=== PATIENT | male | born 1950 | race Caucasian/White ===

== ENCOUNTER 2018-01-17 16:02 | Emergency (ER) | payer OTHER | END 2018-01-17 19:33 | disposition home or self-care (01) | LOC: FTE 16:02 | DX: H33.22 Serous retinal detachment, left eye (principal); I10 Essential (primary) hypertension; E03.9 Hypothyroidism, unspecified; Z85.038 Personal history of other malignant neoplasm of large intestine | CPT/HCPCS: 76536; 99284-25 ==

== ENCOUNTER 2018-09-14 09:58 | Day surgery (SDC) | payer OTHER ==
[~2018-09-14 09:58] MED LIST: ACETAZOLAMIDE 250 MG TAB PO; LIDOCAINE 4% (MPF) 5 ML INJ OPER
[2018-09-14] MEDS: MOXIFLOXACIN 0.5% 3 ML OPH OPER (10:43)
[2018-09-14] MEDS: TROPICAMIDE 1% 15 ML OPH OPER (10:43)
[2018-09-14] MEDS: PHENYLephrine 10% 5 ML OPH OPER (10:44)
[2018-09-14] MEDS: DICLOFENAC 0.1% 2.5 ML OPH OPER (10:44)
[2018-09-14] MEDS ORDERED: LACTATED RINGER'S 1,000 ML IV (11:00)
[2018-09-14] MEDS ORDERED: CARBACHOL 0.01% 1.5 ML OPH INJ (12:55)
[2018-09-14] MEDS ORDERED: EPINEPHrine 1 MG INJ (12:56)
[2018-09-14] MEDS ORDERED: DEXAMETHASONE 4 MG/ML 1 ML INJ (12:56)
[2018-09-14] MEDS ORDERED: MIDAZOLAM 1 MG/ML 2 ML INJ ×2 (12:59→13:24)
[2018-09-14] MEDS ORDERED: FENTAnyl 50 MCG/ML VIAL (13:17)
[2018-09-14] MEDS ORDERED: OXYCODONE/ACETAMINOPHEN (5/325) TAB PO ×2 (13:30)
[2018-09-14] MEDS ORDERED: LABETALOL HCL 20MG INJ IV (13:30)
[2018-09-14] MEDS ORDERED: FENTAnyl 50 MCG/ML VIAL IV ×3 (13:30)
[2018-09-14] MEDS ORDERED: hydrALAzine 20 MG INJ IV (13:30)
[2018-09-14] MEDS ORDERED: ONDANSETRON 4 MG INJ IV (13:30)
[2018-09-14] MEDS: LIDOCAINE 1.5%/EPI MPF (SDV) 30 ML VIAL (13:41)
[2018-09-14] MEDS: TETRACAINE 0.5% 4 ML OPH (13:42)
[2018-09-14] MEDS: TOBRAMYCIN/DEXAMETH 3.5 GM OPH OINT (13:42)
[2018-09-14] MEDS ORDERED: SODIUM HYALURONATE 14 MG/ML SYG (13:57)
== END 2018-09-14 15:00 | disposition home or self-care (01) ==
LOC: SDS 09:58
DX: H25.12 Age-related nuclear cataract, left eye (principal); I10 Essential (primary) hypertension; E78.5 Hyperlipidemia, unspecified; E03.9 Hypothyroidism, unspecified
CPT/HCPCS: 66984

== ENCOUNTER 2018-12-29 19:11 | Emergency (ER) | payer OTHER ==
[2018-12-29 20:16] LABS: ADD MAN DIFF? NO
[2018-12-29 20:17] LABS: WHITE BLOOD COUNT 9.1 10^3/ul (4.8-10.8)
[2018-12-29 20:17] LABS: BASOPHILS % 0.3 % (0.0-2.0); EOSINOPHILS # 0.2 10^3/ul (0.0-0.5); EOSINOPHILS % 2.4 % (0.0-7.0); HEMATOCRIT 44.9 % (42.0-52.0); HEMOGLOBIN 15.2 g/dl (14.0-18.0); LYMPHOCYTES # 2.3 10^3/ul (0.8-2.9); LYMPHOCYTES % 25.3 % (15.0-51.0); MEAN CORPUSCULAR HEMOGLOBIN 31.9 pg (29.0-33.0); MEAN CORPUSCULAR HGB CONC 33.9 g/dl (32.0-37.0); MEAN CORPUSCULAR VOLUME 94.1 fl (82.0-101.0); MEAN PLATELET VOLUME 10.8 fl (7.4-10.4); MONOCYTE # 0.8 10^3/ul (0.3-0.9); MONOCYTES % 8.6 % (0.0-11.0); NEUTROPHIL # 5.7 10^3/ul (1.6-7.5); NEUTROPHILS % 63.2 % (39.0-77.0); PLATELET COUNT 152 10^3/UL (140-415); RED BLOOD COUNT 4.77 10^6/ul (4.70-6.10); RED CELL DISTRIBUTION WIDTH 12.4 % (11.5-14.5)
[2018-12-29 20:25] LABS: ADD UMIC YES; UR ASCORBIC ACID 40 mg/dL (NEGATIVE); UR BILIRUBIN (Dip) NEGATIVE (NEGATIVE); UR BLOOD (Dip) NEGATIVE (NEGATIVE); UR CLARITY SLIGHTLY CLOUDY (CLEAR); UR COLOR AMBER (YELLOW); UR GLUCOSE (Dip) NEGATIVE (NEGATIVE); UR KETONES (Dip) TRACE mg/dL (NEGATIVE); UR LEUKOCYTE ESTERASE (Dip) NEGATIVE Leu/ul (NEGATIVE); UR MUCUS MANY /HPF (NONE SEEN); UR NITRITE (Dip) NEGATIVE (NEGATIVE); UR RBC 1 /HPF (0-5); UR TOTAL PROTEIN (Dip) 2+ mg/dl (NEGATIVE); UR UROBILINOGEN (Dip) NEGATIVE (NEGATIVE); UR WBC 3 /HPF (0-5)
[2018-12-29] MEDS: SOD CHLORIDE 0.9% 1,000 ML IV (20:26)
[2018-12-29] MEDS: ONDANSETRON 4 MG INJ IV (20:26)
[2018-12-29] MEDS: morphine 4 MG/ML VIAL IV (20:26)
[2018-12-29 20:30] LABS: ALANINE AMINOTRANSFERASE 50 IU/L (13-69); ALBUMIN 4.7 g/dl (3.3-4.9); ALBUMIN/GLOBULIN RATIO 1.88; ALKALINE PHOSPHATASE 116 IU/L (42-121); ANION GAP 6 (5-13); ASPARTATE AMINO TRANSFERASE 34 IU/L (15-46); BILIRUBIN,INDIRECT 1.2 mg/dl (0-1.1); BILIRUBIN,TOTAL 1.2 mg/dl (0.2-1.3); BLOOD UREA NITROGEN 14 mg/dl (7-20); CALCIUM 9.3 mg/dl (8.4-10.2); CARBON DIOXIDE 33 mmol/L (21-31); CHLORIDE 101 mmol/L (97-110); CREATININE 0.79 mg/dl (0.61-1.24); Estimated GFR > 60 mL/min (>60); GLUCOSE 106 mg/dl (70-220); LIPASE 166 U/L (23-300); POTASSIUM 3.7 mmol/L (3.5-5.1); SODIUM 140 mmol/L (135-144); TOTAL PROTEIN 7.2 g/dl (6.1-8.1)
[2018-12-29 20:41] LABS: TROPONIN-I < 0.012 ng/ml (0.000-0.120)
[2018-12-29] MEDS: IOHEXOL 300MG/ML 150 ML BTL (21:09)
[2018-12-29] MEDS: SOD CHLORIDE 0.9% 100 ML (21:09)
== END 2018-12-29 22:30 | disposition home or self-care (01) ==
LOC: E/R 19:11
DX: B37.0 Candidal stomatitis (principal); N30.00 Acute cystitis without hematuria; I10 Essential (primary) hypertension; Z85.038 Personal history of other malignant neoplasm of large intestine; Z87.891 Personal history of nicotine dependence
CPT/HCPCS: 36415; 74177; 80053; 81001; 83690; 84484; 85025; 96374; 96375; 99285-25